=== PATIENT | female | born 1985 | race Caucasian/White ===

== ENCOUNTER 2025-03-27 11:11 | Emergency (ER) | payer OTHER ==
[~2025-03-27] VITALS: Ht 167.6 cm; Wt 72.6 kg
[~2025-03-27 11:11] MED LIST: ONDANSETRON ODT4 MG PO; PROTONIX20 MG PO
[2025-03-27 11:33] VITALS: PULSE 86; RESP 16; TEMP 97.5; O2SAT 100
[2025-03-27 12:28] LABS: BILIRUBIN,URINE NEGATIVE (NEGATIVE); CLARITY,URINE CLEAR (CLEAR); COLOR,URINE YELLOW (YELLOW); GLUCOSE, URINE NEGATIVE (NEGATIVE); KETONES,URINE NEGATIVE (NEGATIVE); LEUKOCYTE ESTERASE ,URINE SMALL (NEGATIVE); NITRITE,URINE NEGATIVE (NEGATIVE); PH,URINE 6 (5 - 7); PROTEIN,URINE DIPSTICK NEGATIVE (NEGATIVE); URINE UROBILINOGEN 0.2 mg/dL (0.2 - 1)
[2025-03-27 12:44] LABS: BACTERIA,URINE MODERATE /HPF; EPITHELIAL CELLS,URINE MODERATE /LPF
[2025-03-27 12:45] LABS: RBC,URINE 0-5 /HPF (0-5)
[2025-03-27] MEDS: LOPERAMIDE HCL 2 MG CAP PO ONE (13:46)
[2025-03-27] MEDS: CEFTRIAXONE 1 GM VIAL IM ONE (13:47)
[2025-03-27] MEDS ORDERED: ANTI-DIARRHEAL2 MG PO (14:05)
[2025-03-27] MEDS ORDERED: NITROFURANTOIN100 MG PO (14:05)
== END 2025-03-27 14:25 | disposition home or self-care (01) ==
LOC: ER 13:33
DX: R30.0 Dysuria (principal); N39.0 Urinary tract infection, site not specified; K52.9 Noninfective gastroenteritis and colitis, unspecified; E86.0 Dehydration; R42 Dizziness and giddiness; Z98.84 Bariatric surgery status
CPT/HCPCS: 81001; 99283; J0696